=== PATIENT | female | born 1960 | race Caucasian/White ===

== ENCOUNTER 2017-04-18 20:28 | Inpatient (IN) | payer MEDICARE, OTHER, MEDICAID ==
[2017-04-18] MEDS ORDERED: HALOPERIDOL 5 MG INJ (20:44)
[2017-04-18] MEDS: HALOPERIDOL 5 MG INJ IM (20:47)
[2017-04-18] MEDS ORDERED: LORAZEPAM 2 MG INJ (21:44)
[2017-04-18 21:50] LABS: ADD MAN DIFF? NO
[2017-04-18] MEDS: LORAZEPAM 2 MG INJ IV (21:50)
[2017-04-18 21:55] LABS: BASOPHIL # 0.1 10^3/ul (0.0-0.1); BASOPHILS % 0.2 % (0.0-2.0); HEMATOCRIT 45.2 % (37.0-47.0); HEMOGLOBIN 16.2 g/dl (12.0-16.0); LYMPHOCYTES % 4.6 % (15.0-51.0); MEAN CORPUSCULAR HEMOGLOBIN 31.6 pg (29.0-33.0); MEAN CORPUSCULAR HGB CONC 35.8 g/dl (32.0-37.0); MEAN CORPUSCULAR VOLUME 88.1 fl (82.0-101.0); MEAN PLATELET VOLUME 10.8 fl (7.4-10.4); MONOCYTE # 1.1 10^3/ul (0.3-0.9); MONOCYTES % 5.2 % (0.0-11.0); NEUTROPHIL # 19.2 10^3/ul (1.6-7.5); NEUTROPHILS % 89.5 % (39.0-77.0); PLATELET COUNT 520 10^3/UL (140-415); RED BLOOD COUNT 5.13 10^6/ul (4.20-5.40); RED CELL DISTRIBUTION WIDTH 14.6 % (11.5-14.5)
[2017-04-18 21:55] LABS: WHITE BLOOD COUNT 21.5 10^3/ul (4.8-10.8)
[2017-04-18 22:20] LABS: ALANINE AMINOTRANSFERASE 20 IU/L (13-69); ALBUMIN 4.5 g/dl (3.3-4.9); ALKALINE PHOSPHATASE 127 IU/L (42-121); ANION GAP 20 (8-16); ASPARTATE AMINO TRANSFERASE 26 IU/L (15-46); BILIRUBIN,INDIRECT 0.4 mg/dl (0-1.1); BILIRUBIN,TOTAL 0.4 mg/dl (0.2-1.3); BLOOD UREA NITROGEN 8 mg/dl (7-20); CALCIUM 10.1 mg/dl (8.4-10.2); CARBON DIOXIDE 23 mmol/L (21-31); CHLORIDE 98 mmol/L (97-110); CREATININE 0.54 mg/dl (0.44-1.00); GLUCOSE 165 mg/dl (70-220); POTASSIUM 3.4 mmol/L (3.5-5.1); SODIUM 138 mmol/L (135-144); TOTAL PROTEIN 7.7 g/dl (6.1-8.1)
[2017-04-18 22:27] LABS: ACETAMINOPHEN < 10.0 ug/ml (10.0-30.0); ETHANOL < 10.0 mg/dl; SALICYLATE < 1.0 mg/dl (5.0-30.0)
[2017-04-18 22:47] LABS: ADD UMIC YES; UR AMORPHOUS CRYSTAL FEW /HPF (NONE SEEN); UR ASCORBIC ACID NEGATIVE (NEGATIVE); UR BACTERIA FEW /HPF (NONE SEEN); UR BILIRUBIN (Dip) NEGATIVE (NEGATIVE); UR BLOOD (Dip) 1+ mg/dL (NEGATIVE); UR CLARITY SLIGHTLY CLOUDY (CLEAR); UR COLOR YELLOW (YELLOW); UR GLUCOSE (Dip) NEGATIVE (NEGATIVE); UR KETONES (Dip) NEGATIVE (NEGATIVE); UR LEUKOCYTE ESTERASE (Dip) NEGATIVE Leu/ul (NEGATIVE); UR NITRITE (Dip) NEGATIVE (NEGATIVE); UR RBC 2 /HPF (0-5); UR SPECIFIC GRAVITY (Dip) 1.013 (1.003-1.030); UR SQUAMOUS EPITHELIAL CELL FEW /HPF (FEW); UR TOTAL PROTEIN (Dip) 1+ mg/dl (NEGATIVE); UR UROBILINOGEN (Dip) 1+ mg/dL (NEGATIVE); UR WBC 1 /HPF (0-5)
[2017-04-18 23:08] LABS: AMPHETAMINE/METHAMPHETAMINE Negative (NEGATIVE); BARBITURATES Negative (NEGATIVE); BENZODIAZEPINES Positive (NEGATIVE); CANNABINOIDS Negative (NEGATIVE); COCAINE Negative (NEGATIVE); OPIATES Positive (NEGATIVE)
[2017-04-18] MEDS: SOD CHLORIDE 0.9% 100 ML (23:57)
[2017-04-18] MEDS: IOHEXOL 300MG/ML 150 ML BTL (23:57)
[2017-04-19] MEDS: CEFTRIAXONE 1 GM/50 ML (PMX) 50 ML IVPB (01:12)
[2017-04-19] MEDS ORDERED: ONDANSETRON 4 MG INJ IV ×2 (01:30→05:00)
[2017-04-19] MEDS: DEXTROSE 5%-0.45% NACL 1,000 ML IV ×3 (04:33→16:43)
[2017-04-19] MEDS ORDERED: HYDROmorphONE 2 MG TAB PO (05:00)
[2017-04-19] MEDS ORDERED: ALPRAZOLAM 0.25 MG TAB PO (05:00)
[2017-04-19] MEDS ORDERED: NACL 0.9% 3 ML SYG IV (05:00)
[2017-04-19] MEDS ORDERED: ALBUTEROL/IPRATROPIUM (NEB) 3 ML AMP HHN (05:00)
[2017-04-19] MEDS: LORAZEPAM 2 MG INJ IV ×3 (05:46→13:50)
[2017-04-19] MEDS: LEVETIRACETAM 1000 MG (PMX) 100 ML IVPB ×2 (05:57→21:32)
[2017-04-19 06:26] LABS: ADD MAN DIFF? NO
[2017-04-19 06:36] LABS: ABNORMAL IP MESSAGE 1; BASOPHILS % 0.1 % (0.0-2.0); HEMATOCRIT 43.5 % (37.0-47.0); HEMOGLOBIN 14.8 g/dl (12.0-16.0); LYMPHOCYTES # 1.4 10^3/ul (0.8-2.9); LYMPHOCYTES % 5.3 % (15.0-51.0); MEAN CORPUSCULAR HEMOGLOBIN 30.7 pg (29.0-33.0); MEAN CORPUSCULAR VOLUME 90.2 fl (82.0-101.0); MEAN PLATELET VOLUME 11.3 fl (7.4-10.4); MONOCYTE # 1.8 10^3/ul (0.3-0.9); MONOCYTES % 6.7 % (0.0-11.0); NEUTROPHIL # 23.6 10^3/ul (1.6-7.5); NEUTROPHILS % 87.4 % (39.0-77.0); RED BLOOD COUNT 4.82 10^6/ul (4.20-5.40); RED CELL DISTRIBUTION WIDTH 14.6 % (11.5-14.5)
[2017-04-19 06:52] LABS: PLATELET COUNT 661 10^3/UL (140-415); POSITIVE DIFF @See below
[2017-04-19] MEDS ORDERED: AMIODARONE 150 MG INJ (07:00)
[2017-04-19] MEDS ORDERED: EPINEPHrine 0.1 MG/ML SYG (07:00)
[2017-04-19] MEDS ORDERED: MAGNESIUM SULFATE 1 GM/100 ML D5W IVPB (07:00)
[2017-04-19 07:07] LABS: ALANINE AMINOTRANSFERASE 9 IU/L (13-69); ALBUMIN 4.1 g/dl (3.3-4.9); ALBUMIN/GLOBULIN RATIO 1.24; ALKALINE PHOSPHATASE 89 IU/L (42-121); ANION GAP 28 (8-16); BILIRUBIN,INDIRECT 0.4 mg/dl (0-1.1); BILIRUBIN,TOTAL 0.4 mg/dl (0.2-1.3); BLOOD UREA NITROGEN 7 mg/dl (7-20); CALCIUM 9.8 mg/dl (8.4-10.2); CARBON DIOXIDE 13 mmol/L (21-31); CHLORIDE 100 mmol/L (97-110); CHOL/HDL RATIO 6.3 RATIO; CHOLESTEROL 221 mg/dl (100-200); CREATININE 0.57 mg/dl (0.44-1.00); GLUCOSE 219 mg/dl (70-220); HDL CHOLESTEROL 35 mg/dl (37-92); LDL CHOLESTEROL,CALCULATED 154 mg/dl; POTASSIUM 3.3 mmol/L (3.5-5.1); SODIUM 138 mmol/L (135-144); TOTAL PROTEIN 7.4 g/dl (6.1-8.1); TRIGLYCERIDES 160 mg/dl (0-149)
[2017-04-19 07:19] LABS: ASPARTATE AMINO TRANSFERASE 46 IU/L (15-46)
[2017-04-19] MEDS: FAMOTIDINE 20 MG TAB PO ×2 (09:00→21:00)
[2017-04-19] MEDS: ZIPRASIDONE 20 MG CAP PO ×2 (09:00→21:00)
[2017-04-19] MEDS: DOCUSATE SODIUM 250 MG CAP PO (09:00)
[2017-04-19] MEDS ORDERED: HYDROCODONE/APAP (7.5/325) TAB PO (11:00)
[2017-04-19] MEDS: INFLUENZA VIRUS VACCINE 0.5 ML SYG IM* (11:00)
[2017-04-19] MEDS ORDERED: CEFEPIME 2GM/50 ML (PMX) 50 ML IVPB (11:00)
[2017-04-19] MEDS: HEPARIN 5,000 UNIT/0.5 ML VIAL SC ×2 (11:41→21:33)
[2017-04-19 12:41] LABS: AADO2 Arterial 633.9 mmHg (7.0-24.0); Arterial Base Excess 2.2 mmol/L (-3.0-3); Arterial Blood Gas Oxygen Sat 93.2 mmHG (95.0-98.0); Arterial COHb 0.1 % (0.0-3.0); Arterial HCO3 21.2 mmol/L (22.0-26.0); Arterial MetHb 0.1 % (0.0-1.5); Arterial Total Hemglobin 15.4 g/dl (12.0-18.0); Arterial pCO2 21.3 mmhg (35-45); MODE MASK - NRB; Site Right Brachial
[2017-04-19] MEDS: CLINDAMYCIN 300 MG/D5W (PMX) 50 ML IVPB ×2 (12:45→18:49)
[2017-04-19] MEDS: POTASSIUM CHLORIDE 100 ML IVPB ×2 (13:26→17:30)
[2017-04-19] MEDS ORDERED: PROPOFOL 100 ML (15:38)
[2017-04-19] MEDS: LABETALOL HCL 20MG INJ IV (16:30)
[2017-04-19] MEDS: FUROSEMIDE 20 MG INJ IV (16:30)
[2017-04-19 17:07] LABS: Arterial Base Excess -8.4 mmol/L (-3.0-3); Arterial Blood Gas Oxygen Sat 94.9 mmHG (95.0-98.0); Arterial COHb 0.3 % (0.0-3.0); Arterial Fraction of Oxyhgb 94.3 % (93.0-99.0); Arterial HCO3 15.4 mmol/L (22.0-26.0); Arterial MetHb 0.3 % (0.0-1.5); Arterial Total Hemglobin 16.9 g/dl (12.0-18.0); Arterial pCO2 28.4 mmhg (35-45); MODE VENT - AC; Site Right Brachial
[2017-04-19] MEDS: LACTATED RINGER'S 1,000 ML IV (17:30)
[2017-04-19] MEDS: PROPOFOL 100 ML IV ×2 (17:30→20:39)
[2017-04-19] MEDS ORDERED: FENTAnyl (DRIP) 1000 mcg/100mL 100 ML IV (18:00)
[2017-04-19] MEDS: NORepinephrine 8MG/250 ML (PMX 250 ML IV (20:58)
[2017-04-19] MEDS: ATORVASTATIN 10 MG TAB PO (21:00)
[2017-04-19] MEDS: SENNA TAB PO (21:00)
[2017-04-20] MEDS: CLINDAMYCIN 300 MG/D5W (PMX) 50 ML IVPB (00:08)
[2017-04-20] MEDS ORDERED: VANCOMYCIN IV PER PHARMACY XX (01:00)
[2017-04-20] MEDS: LORAZEPAM 2 MG INJ IV ×4 (01:12→19:48)
[2017-04-20] MEDS: PIPER-TAZO 3.375 GM IV (PMX) 100 ML IVPB ×4 (01:16→17:43)
[2017-04-20] MEDS: PROPOFOL 100 ML IV ×4 (03:58→22:43)
[2017-04-20] MEDS: VANCOMYCIN 1.25 GM in SOD CHLORIDE 0.9% 250 ML IVPB (04:02)
[2017-04-20 05:22] LABS: AADO2 Arterial 556.9 mmHg (7.0-24.0); Allen Test ACCEPTAB; Arterial Base Excess -2.2 mmol/L (-3.0-3); Arterial Blood Gas Oxygen Sat 98.6 mmHG (95.0-98.0); Arterial COHb 0.3 % (0.0-3.0); Arterial MetHb 0.3 % (0.0-1.5); Arterial Total Hemglobin 16.4 g/dl (12.0-18.0); Arterial pCO2 25.2 mmhg (35-45); MODE VENT - AC; Site Right Radial
[2017-04-20 06:20] LABS: WHITE BLOOD COUNT 40.2 10^3/ul (4.8-10.8)
[2017-04-20 06:20] LABS: ABNORMAL IP MESSAGE 1; HEMATOCRIT 43.6 % (37.0-47.0); HEMOGLOBIN 15.4 g/dl (12.0-16.0); MEAN CORPUSCULAR HEMOGLOBIN 31.9 pg (29.0-33.0); MEAN CORPUSCULAR HGB CONC 35.3 g/dl (32.0-37.0); MEAN CORPUSCULAR VOLUME 90.3 fl (82.0-101.0); MEAN PLATELET VOLUME 11.9 fl (7.4-10.4); PLATELET COUNT 379 10^3/UL (140-415); RED BLOOD COUNT 4.83 10^6/ul (4.20-5.40)
[2017-04-20 06:30] LABS: ADD MAN DIFF? YES; POSITIVE DIFF @See below
[2017-04-20 06:47] LABS: ALANINE AMINOTRANSFERASE 69 IU/L (13-69); ALBUMIN 3.5 g/dl (3.3-4.9); ALBUMIN/GLOBULIN RATIO 1.29; ALKALINE PHOSPHATASE 93 IU/L (42-121); ANION GAP 15 (8-16); ASPARTATE AMINO TRANSFERASE 133 IU/L (15-46); BILIRUBIN,INDIRECT 0.4 mg/dl (0-1.1); BILIRUBIN,TOTAL 0.4 mg/dl (0.2-1.3); BLOOD UREA NITROGEN 17 mg/dl (7-20); CALCIUM 9.3 mg/dl (8.4-10.2); CARBON DIOXIDE 22 mmol/L (21-31); CHLORIDE 106 mmol/L (97-110); CREATININE 1.12 mg/dl (0.44-1.00); GLUCOSE 114 mg/dl (70-220); SODIUM 141 mmol/L (135-144); TOTAL PROTEIN 6.2 g/dl (6.1-8.1)
[2017-04-20 06:50] LABS: MAGNESIUM 1.9 mg/dl (1.7-2.5)
[2017-04-20 06:50] LABS: PHOSPHORUS 2.5 mg/dl (2.5-4.9)
[2017-04-20 06:51] LABS: LACTIC ACID 2.4 mmol/L (0.5-2.0)
[2017-04-20 06:56] LABS: POTASSIUM 2.2 mmol/L (3.5-5.1)
[2017-04-20] MEDS: POTASSIUM CHLORIDE 50 ML IVPB ×5 (08:05→18:09)
[2017-04-20] MEDS: DEXTROSE 5%-0.45% NACL 1,000 ML IV ×2 (08:11→15:39)
[2017-04-20] MEDS: FAMOTIDINE 20 MG TAB PO ×2 (08:25→20:51)
[2017-04-20] MEDS: ZIPRASIDONE 20 MG CAP PO ×2 (08:25→20:50)
[2017-04-20] MEDS: DOCUSATE SODIUM 250 MG CAP PO (08:27)
[2017-04-20] MEDS: LEVETIRACETAM 1000 MG (PMX) 100 ML IVPB ×2 (08:32→20:51)
[2017-04-20] MEDS: HEPARIN 5,000 UNIT/0.5 ML VIAL SC ×2 (08:36→20:59)
[2017-04-20 10:08] LABS: ANISOCYTOSIS 1+ (0-0); BAND NEUTROPHILS #M 6.4 10^3/ul (0.0-0.6); BAND NEUTROPHILS % (M) 16 % (0-4); BASOPHIL #M 0.4 10^3/ul (0.0-0.0); BASOPHILS % (M) 1 % (0-2); GIANT THROMBO% (M) 2 % (0-0); LYMPHOCYTES #M 3.2 10^3/ul (0.8-2.9); LYMPHOCYTES % (M) 8 % (15-51); MONOCYTE #M 1.6 10^3/ul (0.3-0.9); MONOCYTES % (M) 4 % (0-11); PLATELET ESTIMATE NORMAL; POIKILOCYTOSIS 1+ (0-0); REACTIVE LYMPHOCYTES #M 0.4 10^3/ul (0.0-0.0); REACTIVE LYMPHOCYTES% (M) 1 % (0-0); SEG NEUT #M 30.7 10^3/ul (1.6-7.5); SEGMENTED NEUTROPHILS (M) % 70 % (39-77); SMUDGE%M 9 % (0-0)
[2017-04-20] MEDS: NORepinephrine 8MG/250 ML (PMX 250 ML IV ×3 (13:55→22:31)
[2017-04-20] MEDS: ATORVASTATIN 10 MG TAB PO (20:50)
[2017-04-20] MEDS: SENNA TAB PO (20:50)
[2017-04-21] MEDS: PIPER-TAZO 3.375 GM IV (PMX) 100 ML IVPB ×4 (00:19→21:54)
[2017-04-21] MEDS: NORepinephrine 8MG/250 ML (PMX 250 ML IV ×2 (03:09→08:05)
[2017-04-21] MEDS: VANCOMYCIN 1 GM 250 ML IVPB (03:42)
[2017-04-21] MEDS: MIDAZOLAM (DRIP) 50 mg/50 mL 50 ML IV ×4 (03:42→18:36)
[2017-04-21 05:46] LABS: ABNORMAL IP MESSAGE 1; HEMATOCRIT 41.1 % (37.0-47.0); MEAN CORPUSCULAR HEMOGLOBIN 31.3 pg (29.0-33.0); MEAN CORPUSCULAR HGB CONC 34.1 g/dl (32.0-37.0); MEAN CORPUSCULAR VOLUME 91.7 fl (82.0-101.0); MEAN PLATELET VOLUME 12.1 fl (7.4-10.4); NUCLEATED RED BLOOD CELLS% 0.1 /100WBC (0.0-0.0); PLATELET COUNT 295 10^3/UL (140-415); RED BLOOD COUNT 4.48 10^6/ul (4.20-5.40); RED CELL DISTRIBUTION WIDTH 15.4 % (11.5-14.5)
[2017-04-21 05:46] LABS: WHITE BLOOD COUNT 35.7 10^3/ul (4.8-10.8)
[2017-04-21] MEDS: PROPOFOL 100 ML IV (06:07)
[2017-04-21 06:09] LABS: ANION GAP 19 (8-16); BLOOD UREA NITROGEN 24 mg/dl (7-20); CALCIUM 8.4 mg/dl (8.4-10.2); CARBON DIOXIDE 15 mmol/L (21-31); CHLORIDE 113 mmol/L (97-110); CREATININE 1.31 mg/dl (0.44-1.00); GLUCOSE 135 mg/dl (70-220); MAGNESIUM 1.8 mg/dl (1.7-2.5); POTASSIUM 3.7 mmol/L (3.5-5.1); SODIUM 143 mmol/L (135-144)
[2017-04-21 06:10] LABS: POSITIVE DIFF @See below
[2017-04-21 06:12] LABS: PATH REVIEW? YES
[2017-04-21 06:13] LABS: ADD MAN DIFF? YES
[2017-04-21] MEDS ORDERED: POTASSIUM CHLORIDE 100 ML (06:22)
[2017-04-21] MEDS ORDERED: METOPROLOL 5 MG INJ (06:33)
[2017-04-21] MEDS: PHENYLephrine 80 MG in DEXTROSE 5% 492 ML IV (07:02)
[2017-04-21] MEDS: METOPROLOL 5 MG INJ IV (07:15)
[2017-04-21 08:03] LABS: ANISOCYTOSIS 1+ (0-0); BAND NEUTROPHILS #M 2.1 10^3/ul (0.0-0.6); BAND NEUTROPHILS % (M) 6 % (0-4); GIANT THROMBO% (M) 5 % (0-0); LYMPHOCYTES % (M) 3 % (15-51); MONOCYTE #M 2.1 10^3/ul (0.3-0.9); MONOCYTES % (M) 6 % (0-11); PLASMA CELLS #M 0.7 10^3/ul (0.0-0.0); PLASMAC%(M) 2 % (0); PLATELET ESTIMATE NORMAL; POIKILOCYTOSIS 2+ (0-0); SEG NEUT #M 30.4 10^3/ul (1.6-7.5); SEGMENTED NEUTROPHILS (M) % 83 % (39-77); SMUDGE%M 6 % (0-0)
[2017-04-21 08:26] LABS: AADO2 Arterial 331.5 mmHg (7.0-24.0); Allen Test ACCEPTAB; Arterial Base Excess -10.2 mmol/L (-3.0-3); Arterial Blood Gas Oxygen Sat 98.4 mmHG (95.0-98.0); Arterial COHb 0.3 % (0.0-3.0); Arterial Fraction of Oxyhgb 97.9 % (93.0-99.0); Arterial HCO3 13.2 mmol/L (22.0-26.0); Arterial MetHb 0.2 % (0.0-1.5); Arterial Total Hemglobin 15.5 g/dl (12.0-18.0); Arterial pCO2 24.1 mmhg (35-45); MODE VENT - AC; Site Right Radial
[2017-04-21] MEDS ORDERED: VASOPRESSIN 60 UNIT in DEXTROSE 5% 57 ML IV (08:30)
[2017-04-21] MEDS: ZIPRASIDONE 20 MG CAP PO (08:57)
[2017-04-21] MEDS: FAMOTIDINE 20 MG TAB PO (08:57)
[2017-04-21] MEDS: LEVETIRACETAM 1000 MG (PMX) 100 ML IVPB (08:57)
[2017-04-21] MEDS: DOCUSATE SODIUM 250 MG CAP PO (09:00)
[2017-04-21] MEDS: HEPARIN 5,000 UNIT/0.5 ML VIAL SC ×2 (09:12→22:05)
[2017-04-21] MEDS: LORAZEPAM 2 MG INJ IV (10:28)
[2017-04-21] MEDS: DIGOXIN 500 MCG INJ IV ×2 (10:59→14:55)
[2017-04-21] MEDS: SOD CHLORIDE 0.9% 1,000 ML IV (12:21)
[2017-04-21] MEDS: AMIODARONE 900 MG in DEXTROSE 5% 482 ML IV (12:44)
[2017-04-21] MEDS: SENNA TAB PO (21:54)
[2017-04-21] MEDS: LEVETIRACETAM IV 1,250 MG in DEXTROSE 5% 100 ML IVPB (21:54)
[2017-04-21] MEDS: ATORVASTATIN 10 MG TAB PO (21:54)
[2017-04-22] MEDS ORDERED: NORepinephrine 8MG/250 ML (PMX 250 ML ×2 (01:22→16:51)
[2017-04-22 03:31] LABS: ADD MAN DIFF? NO
[2017-04-22 03:50] LABS: ANION GAP 17 (8-16); BLOOD UREA NITROGEN 32 mg/dl (7-20); CALCIUM 8.1 mg/dl (8.4-10.2); CARBON DIOXIDE 14 mmol/L (21-31); CHLORIDE 111 mmol/L (97-110); GLUCOSE 165 mg/dl (70-220); MAGNESIUM 1.8 mg/dl (1.7-2.5); PHOSPHORUS 3.7 mg/dl (2.5-4.9); POTASSIUM 4.1 mmol/L (3.5-5.1); SODIUM 138 mmol/L (135-144)
[2017-04-22 03:54] LABS: VANCOMYCIN,TROUGH 11.9 ug/ml (10.0-20.0)
[2017-04-22 04:06] LABS: ABNORMAL IP MESSAGE 1; BASOPHIL # 0.1 10^3/ul (0.0-0.1); BASOPHILS % 0.2 % (0.0-2.0); HEMATOCRIT 40.5 % (37.0-47.0); HEMOGLOBIN 13.3 g/dl (12.0-16.0); LYMPHOCYTES # 2.4 10^3/ul (0.8-2.9); LYMPHOCYTES % 7.8 % (15.0-51.0); MEAN CORPUSCULAR HEMOGLOBIN 31.4 pg (29.0-33.0); MEAN CORPUSCULAR HGB CONC 32.8 g/dl (32.0-37.0); MEAN CORPUSCULAR VOLUME 95.7 fl (82.0-101.0); MEAN PLATELET VOLUME 13.7 fl (7.4-10.4); MONOCYTE # 1.7 10^3/ul (0.3-0.9); MONOCYTES % 5.5 % (0.0-11.0); NEUTROPHIL # 25.9 10^3/ul (1.6-7.5); NEUTROPHILS % 85.4 % (39.0-77.0); PLATELET COUNT 178 10^3/UL (140-415); RED BLOOD COUNT 4.23 10^6/ul (4.20-5.40); RED CELL DISTRIBUTION WIDTH 15.9 % (11.5-14.5)
[2017-04-22 04:06] LABS: WHITE BLOOD COUNT 30.3 10^3/ul (4.8-10.8)
[2017-04-22 04:08] LABS: POSITIVE DIFF @See below
[2017-04-22] MEDS: VANCOMYCIN 1 GM 250 ML IVPB (04:59)
[2017-04-22] MEDS: PIPER-TAZO 3.375 GM IV (PMX) 100 ML IVPB ×3 (05:00→21:45)
[2017-04-22] MEDS: MIDAZOLAM (DRIP) 50 mg/50 mL 50 ML IV (05:27)
[2017-04-22] MEDS: FAMOTIDINE 20 MG TAB PO (08:25)
[2017-04-22] MEDS: DOCUSATE SODIUM 250 MG CAP PO (08:25)
[2017-04-22] MEDS: HEPARIN 5,000 UNIT/0.5 ML VIAL SC (08:28)
[2017-04-22 08:49] LABS: AADO2 Arterial 409.3 mmHg (7.0-24.0); Allen Test ACCEPTAB; Arterial Base Excess -13.5 mmol/L (-3.0-3); Arterial Blood Gas Oxygen Sat 98.2 mmHG (95.0-98.0); Arterial COHb 0.3 % (0.0-3.0); Arterial Fraction of Oxyhgb 97.7 % (93.0-99.0); Arterial HCO3 12.1 mmol/L (22.0-26.0); Arterial MetHb 0.2 % (0.0-1.5); MODE VENT - AC; Site Right Radial
[2017-04-22] MEDS: LEVETIRACETAM IV 1,250 MG in DEXTROSE 5% 100 ML IVPB (08:52)
[2017-04-22] MEDS: DILTIAZEM-D5W 125MG/125ML DRIP 125 ML IV (09:46)
[2017-04-22] MEDS: NA BICARBONATE 8.4% 50 ML SYG IV (10:32)
[2017-04-22] MEDS ORDERED: SODIUM BICARBONATE (IV ADD) 100 MEQ in DEXTROSE 5%-0.45% NACL 1,000 ML IV (12:00)
[2017-04-22] MEDS: SODIUM BICARBONATE (IV ADD) 100 MEQ in DEXTROSE 5%-0.45% NACL 1,000 ML IV (13:36)
[2017-04-22] MEDS: DIGOXIN 500 MCG INJ IV (13:38)
[2017-04-22] MEDS: ASPIRIN 81 MG TAB PO (13:41)
[2017-04-22] MEDS: ENOXAPARIN 60 MG/0.6 ML SYG SC (13:44)
[2017-04-22 13:47] LABS: ADD UMIC YES; UR ASCORBIC ACID NEGATIVE (NEGATIVE); UR BILIRUBIN (Dip) NEGATIVE (NEGATIVE); UR BLOOD (Dip) 2+ mg/dL (NEGATIVE); UR CLARITY CLOUDY (CLEAR); UR COLOR YELLOW (YELLOW); UR GLUCOSE (Dip) 1+ mg/dL (NEGATIVE); UR KETONES (Dip) NEGATIVE (NEGATIVE); UR LEUKOCYTE ESTERASE (Dip) NEGATIVE Leu/ul (NEGATIVE); UR NITRITE (Dip) NEGATIVE (NEGATIVE); UR RBC 16 /HPF (0-5); UR SPECIFIC GRAVITY (Dip) 1.017 (1.003-1.030); UR TOTAL PROTEIN (Dip) 2+ mg/dl (NEGATIVE); UR UROBILINOGEN (Dip) NEGATIVE (NEGATIVE); UR WBC 19 /HPF (0-5)
[2017-04-22 13:50] LABS: CREATININE,URINE RANDOM 78.93 mg/dl (20-320)
[2017-04-22 13:58] LABS: SODIUM,URINE RANDOM < 5 mmol/L (30-90)
[2017-04-22 14:26] LABS: AADO2 Arterial 442.3 mmHg (7.0-24.0); Allen Test ACCEPTAB; Arterial Base Excess -8.8 mmol/L (-3.0-3); Arterial Blood Gas Oxygen Sat 97.6 mmHG (95.0-98.0); Arterial COHb 0.3 % (0.0-3.0); Arterial MetHb 0.3 % (0.0-1.5); Arterial Total Hemglobin 13.6 g/dl (12.0-18.0); Arterial pCO2 27.2 mmhg (35-45); MODE VENT - AC; Site Right Radial
[2017-04-22] MEDS: PROPOFOL 100 ML IV (16:28)
[2017-04-22] MEDS ORDERED: VANCOMYCIN IV PER PHARMACY XX (17:00)
[2017-04-22 18:38] LABS: CREATINE KINASE 70 IU/L (23-200)
[2017-04-22 18:51] LABS: CK-MB 2.81 ng/ml (0.0-2.4)
[2017-04-22] MEDS: LEVETIRACETAM (100 MG/ML) 5ML CUP GTB (20:39)
[2017-04-22] MEDS: SENNA TAB PO (20:40)
[2017-04-22] MEDS: ATORVASTATIN 10 MG TAB PO (20:40)
[2017-04-22] MEDS: AMIODARONE 200 MG TAB PO (20:40)
[2017-04-23] MEDS: SODIUM BICARBONATE (IV ADD) 100 MEQ in DEXTROSE 5%-0.45% NACL 1,000 ML IV ×3 (00:43→22:32)
[2017-04-23 01:10] LABS: CREATINE KINASE 57 IU/L (23-200)
[2017-04-23] MEDS: NORepinephrine 16 MG in SOD CHLORIDE 0.9% 484 ML IV (01:21)
[2017-04-23 01:22] LABS: CK INDEX 6.3; CK-MB 3.57 ng/ml (0.0-2.4)
[2017-04-23] MEDS: PROPOFOL 100 ML IV ×2 (05:00→17:00)
[2017-04-23] MEDS: PIPER-TAZO 3.375 GM IV (PMX) 100 ML IVPB ×3 (05:16→22:37)
[2017-04-23 05:52] LABS: ADD MAN DIFF? NO
[2017-04-23 06:06] LABS: ABNORMAL IP MESSAGE 1; BASOPHILS % 0.1 % (0.0-2.0); EOSINOPHILS # 0.1 10^3/ul (0.0-0.5); EOSINOPHILS % 0.6 % (0.0-7.0); HEMATOCRIT 36.8 % (37.0-47.0); HEMOGLOBIN 12.7 g/dl (12.0-16.0); LYMPHOCYTES # 1.2 10^3/ul (0.8-2.9); LYMPHOCYTES % 8.2 % (15.0-51.0); MEAN CORPUSCULAR HEMOGLOBIN 31.5 pg (29.0-33.0); MEAN CORPUSCULAR HGB CONC 34.5 g/dl (32.0-37.0); MEAN CORPUSCULAR VOLUME 91.3 fl (82.0-101.0); MONOCYTE # 0.6 10^3/ul (0.3-0.9); MONOCYTES % 4.3 % (0.0-11.0); NEUTROPHIL # 12.7 10^3/ul (1.6-7.5); NEUTROPHILS % 86.1 % (39.0-77.0); PLATELET COUNT 107 10^3/UL (140-415); RED BLOOD COUNT 4.03 10^6/ul (4.20-5.40); RED CELL DISTRIBUTION WIDTH 15.2 % (11.5-14.5)
[2017-04-23 06:06] LABS: WHITE BLOOD COUNT 14.7 10^3/ul (4.8-10.8)
[2017-04-23 06:34] LABS: POSITIVE DIFF @See below
[2017-04-23 06:54] LABS: ANION GAP 16 (8-16); BLOOD UREA NITROGEN 39 mg/dl (7-20); CALCIUM 7.5 mg/dl (8.4-10.2); CARBON DIOXIDE 19 mmol/L (21-31); CHLORIDE 107 mmol/L (97-110); CREATININE 1.76 mg/dl (0.44-1.00); GLUCOSE 166 mg/dl (70-220); MAGNESIUM 1.6 mg/dl (1.7-2.5); PHOSPHORUS 2.4 mg/dl (2.5-4.9); SODIUM 139 mmol/L (135-144)
[2017-04-23 07:52] LABS: AADO2 Arterial 311.4 mmHg (7.0-24.0); Allen Test ACCEPTAB; Arterial Base Excess -4.8 mmol/L (-3.0-3); Arterial Blood Gas Oxygen Sat 97.1 mmHG (95.0-98.0); Arterial COHb 0.3 % (0.0-3.0); Arterial Fraction of Oxyhgb 96.6 % (93.0-99.0); Arterial HCO3 16.9 mmol/L (22.0-26.0); Arterial MetHb 0.2 % (0.0-1.5); Arterial Total Hemglobin 13.9 g/dl (12.0-18.0); Arterial pCO2 23.8 mmhg (35-45); MODE VENT - AC; Site Right Radial
[2017-04-23] MEDS: DOCUSATE SODIUM 250 MG CAP PO (08:59)
[2017-04-23] MEDS: ASPIRIN 81 MG TAB PO (08:59)
[2017-04-23] MEDS: FAMOTIDINE 20 MG TAB PO (09:00)
[2017-04-23] MEDS: AMIODARONE 200 MG TAB PO ×2 (09:00→21:22)
[2017-04-23] MEDS: LEVETIRACETAM (100 MG/ML) 5ML CUP GTB ×2 (09:02→21:22)
[2017-04-23] MEDS: POTASSIUM CHLORIDE 50 ML IVPB ×4 (10:38→14:07)
[2017-04-23] MEDS: LORAZEPAM 2 MG INJ IV ×3 (13:07→21:53)
[2017-04-23] MEDS: morphine 2 MG INJ IV (14:08)
[2017-04-23] MEDS: MAGNESIUM SULFATE 2 GM/50 ML 50 ML IVPB (16:01)
[2017-04-23] MEDS ORDERED: FENTAnyl (DRIP) 1000 mcg/100mL 100 ML IV (18:00)
[2017-04-23] MEDS: SENNA TAB PO (21:00)
[2017-04-23] MEDS: ATORVASTATIN 10 MG TAB PO (21:22)
[2017-04-23] MEDS: IPRATROPIUM (HFA) 12.9 GM INHALER INH (22:30)
[2017-04-23] MEDS: DILTIAZEM-D5W 125MG/125ML DRIP 125 ML IV (22:33)
[2017-04-23 22:36] LABS: AADO2 Arterial 466.7 mmHg (7.0-24.0); Allen Test ACCEPTAB; Arterial Base Excess -3.9 mmol/L (-3.0-3); Arterial Blood Gas Oxygen Sat 94.8 mmHG (95.0-98.0); Arterial COHb 0.3 % (0.0-3.0); Arterial Fraction of Oxyhgb 94.4 % (93.0-99.0); Arterial HCO3 18.6 mmol/L (22.0-26.0); Arterial MetHb 0.1 % (0.0-1.5); Arterial Total Hemglobin 13.3 g/dl (12.0-18.0); MODE VENT - AC; Site Right Radial
[2017-04-23] MEDS: MIDAZOLAM (DRIP) 50 mg/50 mL 50 ML IV (22:49)
[2017-04-23] MEDS: FUROSEMIDE 20 MG INJ IV (23:19)
[2017-04-23] MEDS: ALBUTEROL HFA 8 GM INHALER INH (23:32)
[2017-04-24] MEDS: IPRATROPIUM (HFA) 12.9 GM INHALER INH ×4 (02:00→20:00)
[2017-04-24] MEDS: ALBUTEROL HFA 8 GM INHALER INH ×4 (02:11→20:07)
[2017-04-24] MEDS: MIDAZOLAM (DRIP) 50 mg/50 mL 50 ML IV ×3 (02:37→19:20)
[2017-04-24] MEDS ORDERED: VANCOMYCIN 1 GM 250 ML IVPB (05:00)
[2017-04-24] MEDS: PROPOFOL 100 ML IV ×2 (05:00→17:00)
[2017-04-24 05:38] LABS: ADD MAN DIFF? NO
[2017-04-24 05:44] LABS: ABNORMAL IP MESSAGE 1; BASOPHILS % 0.1 % (0.0-2.0); EOSINOPHILS % 0.2 % (0.0-7.0); HEMATOCRIT 31.4 % (37.0-47.0); LYMPHOCYTES # 0.6 10^3/ul (0.8-2.9); LYMPHOCYTES % 3.9 % (15.0-51.0); MEAN CORPUSCULAR HEMOGLOBIN 31.4 pg (29.0-33.0); MEAN CORPUSCULAR VOLUME 89.7 fl (82.0-101.0); MONOCYTES % 6.6 % (0.0-11.0); NEUTROPHIL # 12.8 10^3/ul (1.6-7.5); NEUTROPHILS % 88.4 % (39.0-77.0); PLATELET COUNT 111 10^3/UL (140-415)
[2017-04-24 05:44] LABS: WHITE BLOOD COUNT 14.5 10^3/ul (4.8-10.8)
[2017-04-24] MEDS: PIPER-TAZO 3.375 GM IV (PMX) 100 ML IVPB ×3 (06:06→21:42)
[2017-04-24 06:08] LABS: VANCOMYCIN,TROUGH 11.4 ug/ml (10.0-20.0)
[2017-04-24 06:09] LABS: ALANINE AMINOTRANSFERASE 649 IU/L (13-69); ALBUMIN 2.6 g/dl (3.3-4.9); ALBUMIN/GLOBULIN RATIO 1.04; ALKALINE PHOSPHATASE 58 IU/L (42-121); ANION GAP 18 (8-16); ASPARTATE AMINO TRANSFERASE 681 IU/L (15-46); BILIRUBIN,INDIRECT 0.2 mg/dl (0-1.1); BILIRUBIN,TOTAL 0.2 mg/dl (0.2-1.3); BLOOD UREA NITROGEN 44 mg/dl (7-20); CALCIUM 8.1 mg/dl (8.4-10.2); CARBON DIOXIDE 22 mmol/L (21-31); CHLORIDE 106 mmol/L (97-110); CREATININE 2.38 mg/dl (0.44-1.00); GLUCOSE 138 mg/dl (70-220); MAGNESIUM 2.2 mg/dl (1.7-2.5); PHOSPHORUS 1.7 mg/dl (2.5-4.9); POTASSIUM 3.3 mmol/L (3.5-5.1); SODIUM 143 mmol/L (135-144); TOTAL PROTEIN 5.1 g/dl (6.1-8.1)
[2017-04-24 06:26] LABS: POSITIVE DIFF @See below
[2017-04-24] MEDS: VANCOMYCIN 1 GM 250 ML IVPB (06:40)
[2017-04-24] MEDS: FAMOTIDINE 20 MG TAB PO (08:31)
[2017-04-24] MEDS: DOCUSATE SODIUM 250 MG CAP PO ×2 (08:31→08:33)
[2017-04-24] MEDS: LEVETIRACETAM (100 MG/ML) 5ML CUP GTB ×2 (08:31→20:39)
[2017-04-24] MEDS: ASPIRIN 81 MG TAB PO (08:31)
[2017-04-24] MEDS: AMIODARONE 200 MG TAB PO ×2 (08:31→20:40)
[2017-04-24] MEDS: SODIUM BICARBONATE (IV ADD) 100 MEQ in DEXTROSE 5%-0.45% NACL 1,000 ML IV (10:03)
[2017-04-24] MEDS: POTASSIUM CHLORIDE 100 ML IVPB (11:29)
[2017-04-24] MEDS: NYSTATIN SUSP 5 ML CUP PO ×2 (17:23→20:39)
[2017-04-24] MEDS: HEPARIN 5,000 UNIT/0.5 ML VIAL SC ×2 (17:26→21:43)
[2017-04-24] MEDS: morphine 2 MG INJ IV (17:43)
[2017-04-24] MEDS: ATORVASTATIN 10 MG TAB PO (20:39)
[2017-04-24] MEDS: SENNA TAB PO (20:40)
[2017-04-25] MEDS: MIDAZOLAM (DRIP) 50 mg/50 mL 50 ML IV ×3 (00:12→11:22)
[2017-04-25] MEDS: IPRATROPIUM (HFA) 12.9 GM INHALER INH ×4 (01:16→19:46)
[2017-04-25] MEDS: ALBUTEROL HFA 8 GM INHALER INH ×4 (01:16→19:45)
[2017-04-25 04:35] LABS: ADD MAN DIFF? NO
[2017-04-25 04:43] LABS: ABNORMAL IP MESSAGE 1; BASOPHILS % 0.1 % (0.0-2.0); EOSINOPHILS # 0.2 10^3/ul (0.0-0.5); EOSINOPHILS % 1.4 % (0.0-7.0); HEMATOCRIT 28.9 % (37.0-47.0); LYMPHOCYTES # 0.7 10^3/ul (0.8-2.9); LYMPHOCYTES % 6.2 % (15.0-51.0); MEAN CORPUSCULAR HEMOGLOBIN 31.3 pg (29.0-33.0); MEAN CORPUSCULAR HGB CONC 34.6 g/dl (32.0-37.0); MEAN CORPUSCULAR VOLUME 90.6 fl (82.0-101.0); MONOCYTES % 8.2 % (0.0-11.0); NEUTROPHIL # 9.7 10^3/ul (1.6-7.5); NEUTROPHILS % 83.2 % (39.0-77.0); PLATELET COUNT 94 10^3/UL (140-415); RED BLOOD COUNT 3.19 10^6/ul (4.20-5.40); RED CELL DISTRIBUTION WIDTH 15.3 % (11.5-14.5)
[2017-04-25 04:43] LABS: WHITE BLOOD COUNT 11.7 10^3/ul (4.8-10.8)
[2017-04-25 04:46] LABS: POSITIVE DIFF @See below
[2017-04-25 05:07] LABS: ANION GAP 21 (8-16); BLOOD UREA NITROGEN 53 mg/dl (7-20); CALCIUM 8.2 mg/dl (8.4-10.2); CARBON DIOXIDE 22 mmol/L (21-31); CHLORIDE 106 mmol/L (97-110); CREATININE 3.07 mg/dl (0.44-1.00); GLUCOSE 125 mg/dl (70-220); MAGNESIUM 2.3 mg/dl (1.7-2.5); PHOSPHORUS 1.6 mg/dl (2.5-4.9); POTASSIUM 3.5 mmol/L (3.5-5.1); SODIUM 145 mmol/L (135-144)
[2017-04-25 05:15] LABS: ALANINE AMINOTRANSFERASE 571 IU/L (13-69); ALBUMIN 2.5 g/dl (3.3-4.9); ALKALINE PHOSPHATASE 58 IU/L (42-121); ASPARTATE AMINO TRANSFERASE 508 IU/L (15-46); BILIRUBIN,INDIRECT 0.2 mg/dl (0-1.1); BILIRUBIN,TOTAL 0.2 mg/dl (0.2-1.3); TOTAL PROTEIN 4.7 g/dl (6.1-8.1)
[2017-04-25] MEDS: PIPER-TAZO 3.375 GM IV (PMX) 100 ML IVPB (06:00)
[2017-04-25] MEDS: HEPARIN 5,000 UNIT/0.5 ML VIAL SC ×3 (06:05→22:35)
[2017-04-25] MEDS: PROPOFOL 100 ML IV ×2 (07:00→17:00)
[2017-04-25] MEDS: POTASSIUM PHOSPHATE 40 MEQ in SOD CHLORIDE 0.9% 250 ML IVPB (08:36)
[2017-04-25] MEDS: LEVETIRACETAM (100 MG/ML) 5ML CUP GTB ×2 (08:45→20:21)
[2017-04-25] MEDS: ASPIRIN 81 MG TAB PO (08:46)
[2017-04-25] MEDS: FAMOTIDINE 20 MG TAB PO (08:46)
[2017-04-25] MEDS: NYSTATIN SUSP 5 ML CUP PO ×4 (08:46→20:21)
[2017-04-25] MEDS: FUROSEMIDE 20 MG INJ IV (08:46)
[2017-04-25] MEDS: AMIODARONE 200 MG TAB PO ×2 (08:48→20:21)
[2017-04-25] MEDS: DOCUSATE SODIUM 250 MG CAP PO (08:52)
[2017-04-25] MEDS: PIPER-TAZO 2.25 GM (PMX) 50 ML IVPB ×2 (13:30→22:29)
[2017-04-25] MEDS: CASPOFUNGIN 70 MG in SOD CHLORIDE 0.9% 250 ML IVPB (17:14)
[2017-04-25] MEDS: ATORVASTATIN 10 MG TAB PO (20:21)
[2017-04-25] MEDS: SENNA TAB PO (20:21)
[2017-04-26] MEDS: MIDAZOLAM (DRIP) 50 mg/50 mL 50 ML IV (01:16)
[2017-04-26] MEDS: ALBUTEROL/IPRATROPIUM (NEB) 3 ML AMP HHN ×4 (01:19→19:40)
[2017-04-26 04:56] LABS: ADD MAN DIFF? NO
[2017-04-26 04:59] LABS: WHITE BLOOD COUNT 11.3 10^3/ul (4.8-10.8)
[2017-04-26 04:59] LABS: ABNORMAL IP MESSAGE 1; BASOPHILS % 0.2 % (0.0-2.0); EOSINOPHILS # 0.3 10^3/ul (0.0-0.5); EOSINOPHILS % 2.4 % (0.0-7.0); HEMATOCRIT 29.2 % (37.0-47.0); LYMPHOCYTES # 0.6 10^3/ul (0.8-2.9); LYMPHOCYTES % 4.9 % (15.0-51.0); MEAN CORPUSCULAR HEMOGLOBIN 31.3 pg (29.0-33.0); MEAN CORPUSCULAR HGB CONC 34.2 g/dl (32.0-37.0); MEAN CORPUSCULAR VOLUME 91.3 fl (82.0-101.0); MONOCYTE # 1.1 10^3/ul (0.3-0.9); MONOCYTES % 10.1 % (0.0-11.0); NEUTROPHIL # 9.2 10^3/ul (1.6-7.5); NEUTROPHILS % 81.3 % (39.0-77.0); PLATELET COUNT 98 10^3/UL (140-415); RED CELL DISTRIBUTION WIDTH 15.7 % (11.5-14.5)
[2017-04-26] MEDS: PROPOFOL 100 ML IV ×2 (05:00→15:50)
[2017-04-26 05:02] LABS: POSITIVE DIFF @See below
[2017-04-26 05:22] LABS: ALANINE AMINOTRANSFERASE 404 IU/L (13-69); ALBUMIN 2.5 g/dl (3.3-4.9); ALBUMIN/GLOBULIN RATIO 1.04; ALKALINE PHOSPHATASE 50 IU/L (42-121); ANION GAP 19 (8-16); ASPARTATE AMINO TRANSFERASE 143 IU/L (15-46); BILIRUBIN,INDIRECT 0.3 mg/dl (0-1.1); BILIRUBIN,TOTAL 0.3 mg/dl (0.2-1.3); BLOOD UREA NITROGEN 67 mg/dl (7-20); CALCIUM 8.3 mg/dl (8.4-10.2); CARBON DIOXIDE 22 mmol/L (21-31); CHLORIDE 108 mmol/L (97-110); CREATININE 3.43 mg/dl (0.44-1.00); GLUCOSE 136 mg/dl (70-220); POTASSIUM 4.5 mmol/L (3.5-5.1); SODIUM 144 mmol/L (135-144); TOTAL PROTEIN 4.9 g/dl (6.1-8.1)
[2017-04-26] MEDS: PIPER-TAZO 2.25 GM (PMX) 50 ML IVPB (06:39)
[2017-04-26] MEDS: HEPARIN 5,000 UNIT/0.5 ML VIAL SC ×3 (06:43→21:51)
[2017-04-26] MEDS: DOCUSATE SODIUM 250 MG CAP PO (09:00)
[2017-04-26] MEDS: AMIODARONE 200 MG TAB PO ×2 (09:00→21:50)
[2017-04-26] MEDS: NYSTATIN SUSP 5 ML CUP PO ×4 (09:01→21:50)
[2017-04-26] MEDS: LEVETIRACETAM (100 MG/ML) 5ML CUP GTB ×2 (09:01→21:49)
[2017-04-26] MEDS: ASPIRIN 81 MG TAB PO (09:02)
[2017-04-26] MEDS: FUROSEMIDE 20 MG INJ IV (09:02)
[2017-04-26] MEDS: FAMOTIDINE 20 MG TAB PO (09:06)
[2017-04-26] MEDS: VANCOMYCIN 1 GM 250 ML IVPB (11:16)
[2017-04-26] MEDS: CASPOFUNGIN 35 MG in SOD CHLORIDE 0.9% 250 ML IVPB (17:20)
[2017-04-26] MEDS: ATORVASTATIN 10 MG TAB PO (21:49)
[2017-04-26] MEDS: SENNA TAB PO (21:50)
[2017-04-27] MEDS: ALBUTEROL/IPRATROPIUM (NEB) 3 ML AMP HHN ×4 (01:25→20:01)
[2017-04-27] MEDS: PROPOFOL 100 ML IV ×2 (05:00→16:55)
[2017-04-27 06:03] LABS: ADD MAN DIFF? NO
[2017-04-27 06:10] LABS: ABNORMAL IP MESSAGE 1; BASOPHILS % 0.1 % (0.0-2.0); EOSINOPHILS # 0.3 10^3/ul (0.0-0.5); EOSINOPHILS % 2.3 % (0.0-7.0); HEMATOCRIT 29.5 % (37.0-47.0); HEMOGLOBIN 10.1 g/dl (12.0-16.0); LYMPHOCYTES # 0.4 10^3/ul (0.8-2.9); MEAN CORPUSCULAR HEMOGLOBIN 31.5 pg (29.0-33.0); MEAN CORPUSCULAR HGB CONC 34.2 g/dl (32.0-37.0); MEAN CORPUSCULAR VOLUME 91.9 fl (82.0-101.0); MONOCYTE # 1.5 10^3/ul (0.3-0.9); MONOCYTES % 10.7 % (0.0-11.0); NEUTROPHIL # 11.6 10^3/ul (1.6-7.5); NEUTROPHILS % 83.2 % (39.0-77.0); PLATELET COUNT 125 10^3/UL (140-415); RED BLOOD COUNT 3.21 10^6/ul (4.20-5.40); RED CELL DISTRIBUTION WIDTH 15.9 % (11.5-14.5)
[2017-04-27 06:12] LABS: POSITIVE DIFF @See below
[2017-04-27] MEDS: HEPARIN 5,000 UNIT/0.5 ML VIAL SC ×3 (06:17→21:40)
[2017-04-27 06:38] LABS: ANION GAP 19 (8-16); BLOOD UREA NITROGEN 78 mg/dl (7-20); CALCIUM 8.6 mg/dl (8.4-10.2); CARBON DIOXIDE 22 mmol/L (21-31); CHLORIDE 107 mmol/L (97-110); CREATININE 4.16 mg/dl (0.44-1.00); GLUCOSE 151 mg/dl (70-220); MAGNESIUM 2.3 mg/dl (1.7-2.5); PHOSPHORUS 3.9 mg/dl (2.5-4.9); POTASSIUM 4.4 mmol/L (3.5-5.1); SODIUM 144 mmol/L (135-144)
[2017-04-27 06:48] LABS: ALANINE AMINOTRANSFERASE 257 IU/L (13-69); ALBUMIN 2.6 g/dl (3.3-4.9); ALKALINE PHOSPHATASE 73 IU/L (42-121); ASPARTATE AMINO TRANSFERASE 59 IU/L (15-46); BILIRUBIN,INDIRECT 0.1 mg/dl (0-1.1); BILIRUBIN,TOTAL 0.1 mg/dl (0.2-1.3); TOTAL PROTEIN 4.9 g/dl (6.1-8.1)
[2017-04-27] MEDS: FUROSEMIDE 20 MG INJ IV (09:00)
[2017-04-27] MEDS: AMIODARONE 200 MG TAB PO ×2 (09:00→21:30)
[2017-04-27] MEDS: DOCUSATE SODIUM 250 MG CAP PO (09:00)
[2017-04-27] MEDS: ASPIRIN 81 MG TAB PO (09:26)
[2017-04-27] MEDS: FAMOTIDINE 20 MG TAB PO (09:26)
[2017-04-27] MEDS: LEVETIRACETAM (100 MG/ML) 5ML CUP GTB ×2 (09:26→21:30)
[2017-04-27] MEDS: NYSTATIN SUSP 5 ML CUP PO ×4 (09:27→21:30)
[2017-04-27] MEDS ORDERED: VANCOMYCIN IV PER PHARMACY XX (15:00)
[2017-04-27] MEDS: CASPOFUNGIN 35 MG in SOD CHLORIDE 0.9% 250 ML IVPB (16:54)
[2017-04-27] MEDS: SENNA TAB PO (21:00)
[2017-04-27] MEDS: ATORVASTATIN 10 MG TAB PO (21:30)
[2017-04-28] MEDS: ALBUTEROL/IPRATROPIUM (NEB) 3 ML AMP HHN ×4 (01:31→19:57)
[2017-04-28] MEDS: PROPOFOL 100 ML IV ×2 (05:00→16:27)
[2017-04-28] MEDS: HEPARIN 5,000 UNIT/0.5 ML VIAL SC ×3 (06:20→22:15)
[2017-04-28] MEDS: DOCUSATE SODIUM 250 MG CAP PO (08:15)
[2017-04-28] MEDS: ASPIRIN 81 MG TAB PO (08:15)
[2017-04-28] MEDS: NYSTATIN SUSP 5 ML CUP PO ×4 (08:15→20:32)
[2017-04-28] MEDS: FAMOTIDINE 20 MG TAB PO (08:16)
[2017-04-28] MEDS: AMIODARONE 200 MG TAB PO ×2 (08:16→20:32)
[2017-04-28] MEDS: FUROSEMIDE 20 MG INJ IV (08:17)
[2017-04-28] MEDS: LEVETIRACETAM (100 MG/ML) 5ML CUP GTB ×2 (08:17→20:32)
[2017-04-28] MEDS: CASPOFUNGIN 35 MG in SOD CHLORIDE 0.9% 250 ML IVPB (16:20)
[2017-04-28] MEDS: VANCOMYCIN 750 MG in DEXTROSE 5% 150 ML IVPB (17:00)
[2017-04-28 18:04] LABS: VANCOMYCIN,TROUGH 23.6 ug/ml (10.0-20.0)
[2017-04-28] MEDS: ATORVASTATIN 10 MG TAB PO (20:32)
[2017-04-28] MEDS: SENNA TAB PO (20:34)
[2017-04-28] MEDS: PIPER-TAZO 2.25 GM (PMX) 50 ML IVPB (22:14)
[2017-04-29] MEDS: ALBUTEROL/IPRATROPIUM (NEB) 3 ML AMP HHN ×4 (01:32→20:08)
[2017-04-29] MEDS: PROPOFOL 100 ML IV ×2 (05:00→13:39)
[2017-04-29 05:16] LABS: AADO2 Arterial 638.9 mmHg (7.0-24.0); Allen Test ACCEPTAB; Arterial Base Excess -2.1 mmol/L (-3.0-3); Arterial Blood Gas Oxygen Sat 74.2 mmHG (95.0-98.0); Arterial COHb 0.3 % (0.0-3.0); Arterial Fraction of Oxyhgb 73.8 % (93.0-99.0); Arterial HCO3 21.8 mmol/L (22.0-26.0); Arterial MetHb 0.3 % (0.0-1.5); Arterial Total Hemglobin 11.8 g/dl (12.0-18.0); Arterial pCO2 34.2 mmhg (35-45); MODE VENT - AC; Site Right Radial
[2017-04-29] MEDS: PIPER-TAZO 2.25 GM (PMX) 50 ML IVPB (05:21)
[2017-04-29] MEDS: HEPARIN 5,000 UNIT/0.5 ML VIAL SC ×3 (05:23→21:30)
[2017-04-29 05:38] LABS: CREATININE 5.36 mg/dl (0.44-1.00)
[2017-04-29 05:38] LABS: BLOOD UREA NITROGEN 103 mg/dl (7-20)
[2017-04-29 07:35] LABS: ADD MAN DIFF? NO
[2017-04-29 07:39] LABS: ABNORMAL IP MESSAGE 1; BASOPHILS % 0.1 % (0.0-2.0); EOSINOPHILS # 0.3 10^3/ul (0.0-0.5); EOSINOPHILS % 1.7 % (0.0-7.0); HEMOGLOBIN 9.4 g/dl (12.0-16.0); LYMPHOCYTES # 0.4 10^3/ul (0.8-2.9); LYMPHOCYTES % 2.2 % (15.0-51.0); MEAN CORPUSCULAR HEMOGLOBIN 31.3 pg (29.0-33.0); MEAN CORPUSCULAR HGB CONC 33.6 g/dl (32.0-37.0); MEAN CORPUSCULAR VOLUME 93.3 fl (82.0-101.0); MONOCYTE # 1.2 10^3/ul (0.3-0.9); MONOCYTES % 6.8 % (0.0-11.0); NEUTROPHIL # 15.1 10^3/ul (1.6-7.5); NEUTROPHILS % 87.8 % (39.0-77.0); PLATELET COUNT 177 10^3/UL (140-415); RED CELL DISTRIBUTION WIDTH 16.6 % (11.5-14.5)
[2017-04-29 07:39] LABS: WHITE BLOOD COUNT 17.2 10^3/ul (4.8-10.8)
[2017-04-29 07:40] LABS: POSITIVE DIFF @See below
[2017-04-29 07:56] LABS: ANION GAP 22 (8-16); BLOOD UREA NITROGEN 103 mg/dl (7-20); CARBON DIOXIDE 20 mmol/L (21-31); CHLORIDE 108 mmol/L (97-110); CREATININE 5.27 mg/dl (0.44-1.00); GLUCOSE 123 mg/dl (70-220); MAGNESIUM 2.6 mg/dl (1.7-2.5); PHOSPHORUS 4.8 mg/dl (2.5-4.9); POTASSIUM 5.2 mmol/L (3.5-5.1); SODIUM 145 mmol/L (135-144)
[2017-04-29] MEDS: ASPIRIN 81 MG TAB PO (09:12)
[2017-04-29] MEDS: FAMOTIDINE 20 MG TAB PO (09:12)
[2017-04-29] MEDS: DOCUSATE SODIUM 250 MG CAP PO (09:12)
[2017-04-29] MEDS: FUROSEMIDE 20 MG INJ IV (09:13)
[2017-04-29] MEDS: LEVETIRACETAM (100 MG/ML) 5ML CUP GTB ×2 (09:13→21:25)
[2017-04-29] MEDS: AMIODARONE 200 MG TAB PO ×2 (09:13→21:25)
[2017-04-29] MEDS: NYSTATIN SUSP 5 ML CUP PO ×4 (09:13→21:25)
[2017-04-29 10:17] LABS: AADO2 Arterial 309.4 mmHg (7.0-24.0); Allen Test ACCEPTAB; Arterial Base Excess -4.8 mmol/L (-3.0-3); Arterial Blood Gas Oxygen Sat 99.4 mmHG (95.0-98.0); Arterial COHb 0.3 % (0.0-3.0); Arterial Fraction of Oxyhgb 98.8 % (93.0-99.0); Arterial MetHb 0.3 % (0.0-1.5); Arterial Total Hemglobin 11.1 g/dl (12.0-18.0); Arterial pCO2 36.1 mmhg (35-45); MODE VENT - AC; Site Right Radial
[2017-04-29] MEDS: morphine 2 MG INJ IV (12:29)
[2017-04-29] MEDS: CEFEPIME 1GM/50 ML (PMX) 50 ML IVPB (13:37)
[2017-04-29] MEDS: CASPOFUNGIN 35 MG in SOD CHLORIDE 0.9% 250 ML IVPB (17:07)
[2017-04-29] MEDS: ATORVASTATIN 10 MG TAB PO (21:25)
[2017-04-29] MEDS: SENNA TAB PO (21:25)
[2017-04-30] MEDS: ALBUTEROL/IPRATROPIUM (NEB) 3 ML AMP HHN ×4 (01:35→20:44)
[2017-04-30 05:00] LABS: ADD MAN DIFF? NO
[2017-04-30] MEDS: PROPOFOL 100 ML IV ×2 (05:00→16:34)
[2017-04-30 05:16] LABS: WHITE BLOOD COUNT 18.8 10^3/ul (4.8-10.8)
[2017-04-30 05:16] LABS: ABNORMAL IP MESSAGE 1; BASOPHILS % 0.1 % (0.0-2.0); EOSINOPHILS % 0.1 % (0.0-7.0); HEMOGLOBIN 10.3 g/dl (12.0-16.0); LYMPHOCYTES # 0.2 10^3/ul (0.8-2.9); LYMPHOCYTES % 1.1 % (15.0-51.0); MEAN CORPUSCULAR HEMOGLOBIN 31.5 pg (29.0-33.0); MEAN CORPUSCULAR HGB CONC 33.2 g/dl (32.0-37.0); MEAN CORPUSCULAR VOLUME 94.8 fl (82.0-101.0); MEAN PLATELET VOLUME 14.5 fl (7.4-10.4); MONOCYTE # 0.8 10^3/ul (0.3-0.9); MONOCYTES % 4.2 % (0.0-11.0); NEUTROPHIL # 17.5 10^3/ul (1.6-7.5); NEUTROPHILS % 93.1 % (39.0-77.0); PLATELET COUNT 265 10^3/UL (140-415); RED BLOOD COUNT 3.27 10^6/ul (4.20-5.40); RED CELL DISTRIBUTION WIDTH 16.8 % (11.5-14.5)
[2017-04-30 05:19] LABS: POSITIVE DIFF @See below
[2017-04-30 05:40] LABS: ANION GAP 25 (8-16); BLOOD UREA NITROGEN 118 mg/dl (7-20); CALCIUM 9.1 mg/dl (8.4-10.2); CARBON DIOXIDE 21 mmol/L (21-31); CHLORIDE 107 mmol/L (97-110); CREATININE 5.78 mg/dl (0.44-1.00); GLUCOSE 176 mg/dl (70-220); MAGNESIUM 2.8 mg/dl (1.7-2.5); SODIUM 146 mmol/L (135-144)
[2017-04-30] MEDS: HEPARIN 5,000 UNIT/0.5 ML VIAL SC ×3 (06:15→21:31)
[2017-04-30 06:51] LABS: POTASSIUM 6.6 mmol/L (3.5-5.1)
[2017-04-30] MEDS ORDERED: NA POLYST SULFON 15 GM/60 ML BTL (07:35)
[2017-04-30] MEDS: NA POLYST SULFON 15 GM/60 ML BTL PO (07:57)
[2017-04-30] MEDS: CALCIUM GLUCONATE 10% 2 GM in DEXTROSE 5% 100 ML IVPB (08:09)
[2017-04-30] MEDS: DEXTROSE 50% 50 ML SYRINGE IV (08:12)
[2017-04-30] MEDS ORDERED: GLUCOSE GEL 15 GRAM TUBE PO ×2 (08:30)
[2017-04-30] MEDS ORDERED: GLUCOSE GEL 15 GRAM TUBE BUCCAL (08:30)
[2017-04-30] MEDS ORDERED: DEXTROSE 50% 50 ML SYRINGE IV ×2 (08:30)
[2017-04-30] MEDS ORDERED: GLUCAGON 1 MG INJ IM (08:30)
[2017-04-30] MEDS: INSULIN REGULAR, HUMAN 100 UNIT/1 ML 3ML VIAL IVP (08:34)
[2017-04-30] MEDS: DOCUSATE SODIUM 250 MG CAP PO (09:00)
[2017-04-30] MEDS: FUROSEMIDE 20 MG INJ IV (09:14)
[2017-04-30] MEDS: NYSTATIN SUSP 5 ML CUP PO ×4 (09:14→20:46)
[2017-04-30] MEDS: LEVETIRACETAM (100 MG/ML) 5ML CUP GTB ×2 (09:14→20:46)
[2017-04-30] MEDS: AMIODARONE 200 MG TAB PO ×2 (09:15→20:46)
[2017-04-30] MEDS: ASPIRIN 81 MG TAB PO (09:15)
[2017-04-30] MEDS: FAMOTIDINE 20 MG TAB PO (09:15)
[2017-04-30] MEDS: CEFEPIME 1GM/50 ML (PMX) 50 ML IVPB (13:28)
[2017-04-30] MEDS: CASPOFUNGIN 35 MG in SOD CHLORIDE 0.9% 250 ML IVPB (16:35)
[2017-04-30] MEDS: ATORVASTATIN 10 MG TAB PO (20:45)
[2017-04-30] MEDS: SENNA TAB PO (20:58)
[2017-05-01 00:49] LABS: ANION GAP 26 (8-16); CALCIUM 8.9 mg/dl (8.4-10.2); CARBON DIOXIDE 21 mmol/L (21-31); CHLORIDE 107 mmol/L (97-110); CREATININE 6.08 mg/dl (0.44-1.00); GLUCOSE 175 mg/dl (70-220); SODIUM 148 mmol/L (135-144)
[2017-05-01 00:57] LABS: BLOOD UREA NITROGEN 124 mg/dl (7-20)
[2017-05-01] MEDS: ALBUTEROL/IPRATROPIUM (NEB) 3 ML AMP HHN ×4 (01:32→19:48)
[2017-05-01] MEDS: PROPOFOL 100 ML IV ×2 (05:00→17:00)
[2017-05-01 05:37] LABS: ADD MAN DIFF? NO
[2017-05-01] MEDS: HEPARIN 5,000 UNIT/0.5 ML VIAL SC ×3 (05:42→21:46)
[2017-05-01 05:48] LABS: ABNORMAL IP MESSAGE 1; BASOPHILS % 0.1 % (0.0-2.0); EOSINOPHILS # 0.5 10^3/ul (0.0-0.5); EOSINOPHILS % 3.7 % (0.0-7.0); HEMATOCRIT 27.3 % (37.0-47.0); LYMPHOCYTES # 0.5 10^3/ul (0.8-2.9); LYMPHOCYTES % 3.1 % (15.0-51.0); MEAN CORPUSCULAR HEMOGLOBIN 31.3 pg (29.0-33.0); MEAN CORPUSCULAR VOLUME 94.8 fl (82.0-101.0); MEAN PLATELET VOLUME 14.3 fl (7.4-10.4); MONOCYTES % 6.6 % (0.0-11.0); NEUTROPHIL # 12.7 10^3/ul (1.6-7.5); NEUTROPHILS % 85.6 % (39.0-77.0); PLATELET COUNT 221 10^3/UL (140-415); RED BLOOD COUNT 2.88 10^6/ul (4.20-5.40); RED CELL DISTRIBUTION WIDTH 16.4 % (11.5-14.5)
[2017-05-01 05:48] LABS: WHITE BLOOD COUNT 14.8 10^3/ul (4.8-10.8)
[2017-05-01 06:05] LABS: POSITIVE DIFF @See below
[2017-05-01 06:19] LABS: ANION GAP 26 (8-16); CALCIUM 8.7 mg/dl (8.4-10.2); CARBON DIOXIDE 21 mmol/L (21-31); CHLORIDE 107 mmol/L (97-110); CREATININE 6.15 mg/dl (0.44-1.00); GLUCOSE 158 mg/dl (70-220); SODIUM 148 mmol/L (135-144)
[2017-05-01 06:21] LABS: MAGNESIUM 2.6 mg/dl (1.7-2.5)
[2017-05-01 06:21] LABS: PHOSPHORUS 7.6 mg/dl (2.5-4.9)
[2017-05-01 06:29] LABS: BLOOD UREA NITROGEN 124 mg/dl (7-20)
[2017-05-01] MEDS: NYSTATIN SUSP 5 ML CUP PO ×4 (08:39→21:03)
[2017-05-01] MEDS: FUROSEMIDE 20 MG INJ IV (08:40)
[2017-05-01] MEDS: FAMOTIDINE 20 MG TAB PO (08:40)
[2017-05-01] MEDS: DOCUSATE SODIUM 250 MG CAP PO (08:40)
[2017-05-01] MEDS: LEVETIRACETAM (100 MG/ML) 5ML CUP GTB ×2 (08:40→21:00)
[2017-05-01] MEDS: AMIODARONE 200 MG TAB PO ×2 (08:41→21:03)
[2017-05-01] MEDS: ASPIRIN 81 MG TAB PO (08:47)
[2017-05-01] MEDS: CEFEPIME 1GM/50 ML (PMX) 50 ML IVPB (13:09)
[2017-05-01] MEDS: CASPOFUNGIN 35 MG in SOD CHLORIDE 0.9% 250 ML IVPB (17:04)
[2017-05-01] MEDS: SENNA TAB PO (21:02)
[2017-05-01] MEDS: ATORVASTATIN 10 MG TAB PO (21:02)
[2017-05-02] MEDS: ALBUTEROL/IPRATROPIUM (NEB) 3 ML AMP HHN ×2 (01:30→08:14)
[2017-05-02] MEDS: PROPOFOL 100 ML IV (04:34)
[2017-05-02] MEDS: HEPARIN 5,000 UNIT/0.5 ML VIAL SC (05:44)
[2017-05-02] MEDS: NYSTATIN SUSP 5 ML CUP PO (08:35)
[2017-05-02] MEDS: ASPIRIN 81 MG TAB PO (08:36)
[2017-05-02] MEDS: AMIODARONE 200 MG TAB PO (08:36)
[2017-05-02] MEDS: FUROSEMIDE 20 MG INJ IV (08:36)
[2017-05-02] MEDS: DOCUSATE SODIUM 250 MG CAP PO (08:36)
[2017-05-02] MEDS: FAMOTIDINE 20 MG TAB PO (08:36)
[2017-05-02] MEDS: LEVETIRACETAM (100 MG/ML) 5ML CUP GTB (08:37)
[2017-05-02] MEDS: morphine (DRIP) 100 MG/100 ML 100 ML IV (12:43)
[2017-05-02] MEDS: LORAZEPAM 2 MG INJ IV (13:40)
== END 2017-05-02 14:06 | disposition expired | DRG 870 ==
LOC: MS2 04-19 01:05 → E/R 20:28 → MS2 04-19 04:49 → TEL 04-19 06:40 → ICU 04-19 15:24
PROC: 5A1955Z Respiratory Ventilation, Greater than 96 Consecutive Hours (ICD-10-PCS; principal; 2017-04-19)
PROC: 5A12012 Performance of Cardiac Output, Single, Manual (ICD-10-PCS; 2017-04-19)
PROC: 0BH17EZ Insertion of Endotracheal Airway into Trachea, Via Natural or Artificial Opening (ICD-10-PCS; 2017-04-19)
PROC: 02HV33Z Insertion of Infusion Device into Superior Vena Cava, Percutaneous Approach (ICD-10-PCS; 2017-04-19)
PROC: B548ZZA Ultrasonography of Superior Vena Cava, Guidance (ICD-10-PCS; 2017-04-19)
DX: A41.9 Sepsis, unspecified organism (principal); I21.4 Non-ST elevation (NSTEMI) myocardial infarction; I46.9 Cardiac arrest, cause unspecified; J96.01 Acute respiratory failure with hypoxia; N17.0 Acute kidney failure with tubular necrosis; J69.0 Pneumonitis due to inhalation of food and vomit; G93.1 Anoxic brain damage, not elsewhere classified; R65.21 Severe sepsis with septic shock; N39.0 Urinary tract infection, site not specified; I47.2 Ventricular tachycardia; I69.354 Hemiplegia and hemiparesis following cerebral infarction affecting left non-dominant side; J98.11 Atelectasis; N17.9 Acute kidney failure, unspecified; D69.6 Thrombocytopenia, unspecified; I48.0 Paroxysmal atrial fibrillation; G40.909 Epilepsy, unspecified, not intractable, without status epilepticus; F17.210 Nicotine dependence, cigarettes, uncomplicated; Z79.82 Long term (current) use of aspirin; B96.20 Unspecified Escherichia coli [E. coli] as the cause of diseases classified elsewhere
CPT/HCPCS: 31500; 36415; 36600; 70450; 71045; 74177; 76705; 76775; 80048; 80053; 80061; 80076; 80202; 80306; 80307; 81001; 82540; 82550; 82553; 82565; 82803; 82962; 83036; 83605; 83735; 84100; 84155; 84300; 84443; 84484; 84520; 85025; 87040; 87070; 87075; 87081; 87086; 87400; 90686; 92950; 93005; 93306; 94002; 94003; 94640; 94664; 94770; 95819; 96372; 96374; 96375; 99285-25; J1940